=== PATIENT | female | born 1985 | race Caucasian/White ===

== ENCOUNTER 2023-05-23 17:04 | Emergency (ER) | payer MEDICAID, OTHER ==
[~2023-05-23] VITALS: Ht 165.1 cm; Wt 81.6 kg
[2023-05-23] MEDS ORDERED: KETOROLAC TROMETHAMINE INJ 30 MG/ML VIAL ONE (18:14)
[2023-05-23] MEDS: KETOROLAC TROMETHAMINE INJ 60 MG/2 ML VIAL IM ONE (18:24)
[2023-05-23] MEDS ORDERED: IBUP-1953 PO (18:53)
[2023-05-23 19:34] VITALS: BP 119/87; TEMP 98; O2SAT 97
== END 2023-05-23 19:35 | disposition home or self-care (01) ==
LOC: ER 17:04
DX: M25.562 Pain in left knee (principal); Z79.899 Other long term (current) drug therapy
CPT/HCPCS: 99283; 96372; 73564; J1885